=== PATIENT | female | born 2005 | race African-American/Black ===

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

== ENCOUNTER 2025-01-05 11:30 | Emergency (ER) | payer MEDICAID, OTHER ==
[~2025-01-05] VITALS: Ht 162.6 cm; Wt 68.0 kg
[~2025-01-05 11:30] MED LIST changes: +SUCR1TAB MT
[2025-01-05 11:34] VITALS: O2SAT 99
[2025-01-05 11:43] VITALS: BP 111/82; PULSE 95; RESP 16; TEMP 36.9; O2SAT 98
[2025-01-05] MEDS ORDERED: HALOPERIDOL LACTATE 5MG/ML VIAL IM ONE (15:00)
[2025-01-05 15:10] LABS: CLARITY URINE CLOUDY (CLEAR); COLOR URINE YELLOW (YELLOW); GLUCOSE URINE NEGATIVE (NEGATIVE); KETONES URINE 4+ (NEGATIVE); LEUKOCYTE ESTERASE URINE NEGATIVE (NEGATIVE); NITRITE URINE NEGATIVE (NEGATIVE); OCCULT BLOOD URINE NEGATIVE (NEGATIVE); PH URINE 6.5 (4.5-8.0); PROTEIN URINE 1+ (NEGATIVE); SPECIFIC GRAVITY URINE 1.038 (1.005-1.030); UROBILINOGEN URINE 0.2 E.U./dL (0.2-1.0)
[2025-01-05 15:14] LABS: *AMPHETAMINES SCREEN URINE NEGATIVE (NEGATIVE); *BARBITURATES SCREEN URINE NEGATIVE (NEGATIVE); *BENZODIAZEPINES SCREEN URINE NEGATIVE (NEGATIVE); *COCAINE SCREEN URINE NEGATIVE (NEGATIVE); CANNABINOID URINE SCREEN PRESUMPTIVE POSITIVE (NEGATIVE); ECSTASY MDMA SCREEN URINE NEGATIVE (NEGATIVE); METHADONE URINE SCREEN NEGATIVE (NEGATIVE); OPIATES URINE SCREEN NEGATIVE (NEGATIVE); PHENCYCLIDINE URINE SCREEN NEGATIVE (NEGATIVE)
[2025-01-05 15:23] LABS: BACTERIA URINE 1+; RBC URINE 0-2 /hpf (0-2); SQUAMOUS EPITHELIAL CELL URINE 1+ /lpf (RARE/1+); WBC URINE 0-2 /hpf (0-2); YEAST URINE NONE SEEN
[2025-01-05] MEDS: FAMOTIDINE 20MG TABLET PO SCH (15:27)
[2025-01-05] MEDS: ONDANSETRON 4MG ODT PO SCH (15:27)
[2025-01-05 15:41] LABS: BASOPHILS % 0.4 % (0.0-2.0); EOSINOPHILS % 0.2 % (0.0-5.0); HEMATOCRIT. 40.6 % (36.0-48.0); HEMOGLOBIN. 13.8 g/dL (12.0-16.0); LYMPHOCYTES % 25.9 % (20.0-50.0); MEAN PLATELET VOLUME 8.0 fl (7.4-10.4); MONOCYTES % 9.8 % (2.0-8.0); NEUTROPHILS % 63.7 % (40.0-76.0); PLATELET 345 x1000/uL (130-400); RED BLOOD CELL COUNT 4.50 mill/uL (4.2-5.4); RED CELL DISTRIBUTION WIDTH 12.1 % (11.6-14.6)
[2025-01-05 15:58] LABS: CREATININE 0.7 mg/dL (0.6-1.0)
[2025-01-05 15:59] LABS: UREA NITROGEN BLOOD 13 mg/dL (9-23)
[2025-01-05 16:00] LABS: ASPARTATE AMINOTRANSFERASE 9 IU/L (<34)
[2025-01-05 16:01] LABS: BILIRUBIN DIRECT 0.3 mg/dL (<=3.0); BILIRUBIN TOTAL 0.8 mg/dL (0.1-1.0); PROTEIN TOTAL 8.3 g/dL (6.0-8.3)
[2025-01-05] MEDS ORDERED: SODIUM CHLORIDE 0.9% 1,000 ML IV ONE (17:30)
== END 2025-01-05 19:43 | disposition left against medical advice (07) ==
LOC: ER 11:30
DX: O26.891 Other specified pregnancy related conditions, first trimester (principal); R11.2 Nausea with vomiting, unspecified; R10.9 Unspecified abdominal pain; F12.90 Cannabis use, unspecified, uncomplicated; N89.8 Other specified noninflammatory disorders of vagina; Z79.899 Other long term (current) drug therapy; Z3A.01 Less than 8 weeks gestation of pregnancy
CPT/HCPCS: 99284; 76801; 80076; 80305; 80048; 81025; 84702; 83690; 85025; 36415; 76817; 81003; Q0162; J7030